=== PATIENT | male | born 1960 | race Caucasian/White ===

== ENCOUNTER 2022-10-02 12:29 | Inpatient (IN) | payer OTHER ==
[~2022-10-02] VITALS: Ht 172.7 cm; Wt 68.7 kg
[2022-10-02] MEDS ORDERED: SODIUM CHLORIDE 0.9% 1000ML 1,000 ML IV ONE ×2 (13:00→15:00)
[2022-10-02 13:09] LABS: BASOPHILS # (AUTO) 0.1 (0.0-0.1); BASOPHILS % 0.3 % (0.0-1.0); EOSINOPHILS % 0.1 % (0.0-6.0); HEMATOCRIT 39.2 % (38.2-49.6); HEMOGLOBIN 12.8 g/dL (14.0-18.0); LYMPHOCYTES # (AUTO) 0.5 (1.0-3.2); LYMPHOCYTES % 2.8 % (18.0-39.1); MEAN CORPUSCULAR HEMOGLOBIN 33.8 pg (28-32); MEAN CORPUSCULAR HGB CONC 32.7 g/dL (31-35); MEAN CORPUSCULAR VOLUME 103.4 fL (81-99); MONOCYTES # (AUTO) 0.4 (0.2-0.8); MONOCYTES % 1.9 % (4.4-11.3); NEUTROPHILS # (AUTO) 17.8 (2.1-6.9); NEUTROPHILS % 92.3 % (38.7-80.0); PLATELET COUNT 158 x10e3/uL (140-360); RED BLOOD COUNT 3.79 x10e6/uL (4.3-5.7); RED CELL DISTRIBUTION WIDTH 15.6 % (11.7-14.4)
[2022-10-02] MEDS: Vancomycin IV 1 GM in SODIUM CHLORIDE 0.9% 250ML 250 ML IV SCH (13:18)
[2022-10-02 13:21] LABS: INR 1.04; PROTHROMBIN TIME 14.1 seconds (11.9-14.5)
[2022-10-02 13:22] LABS: PARTIAL THROMBOPLASTIN TIME 34.8 seconds (23.8-35.5)
[2022-10-02 13:30] LABS: ALBUMIN 3.1 g/dL (3.5-5.0); ALBUMIN/GLOBULIN RATIO 0.9 (0.8-2.0); ANION GAP 15.8 mmol/L (8-16); CALCIUM 10.1 mg/dL (8.4-10.2); CREATININE, SERUM 1.24 mg/dL (0.72-1.25); POTASSIUM 3.8 mmol/L (3.5-5.1)
[2022-10-02 14:07] LABS: BAND NEUTROPHILS % (MANUAL) 11 %; EOSINOPHILS % (MANUAL) 1 % (0-7); LYMPHOCYTES % (MANUAL) 3 % (19-48); MONOCYTES % (MANUAL) 1 % (3.4-9.0); NEUTROPHILS % (MANUAL) 84 % (40-74); PLATELET ESTIMATE ADEQUATE; PLATELET MORPHOLOGY COMMENT NORMAL; RBC MORPHOLOGY COMMENT NORMAL
[2022-10-02] MEDS ORDERED: IOPAMIDOL 370 MG/ML 100 ML INFUS..BTL INJ ONE (14:15)
[2022-10-02] MEDS ORDERED: SODIUM CHLORIDE 0.9% 1000ML 1,000 ML IV SCH (15:00)
[2022-10-02] MEDS: SODIUM CHLORIDE 0.9% 1000ML 1,000 ML IV SCH (15:15)
[2022-10-02] MEDS ORDERED: ONDANSETRON HCL INJ 2MG/ML 2ML 2 MG/ML VIAL IV PRN (15:15)
[2022-10-02 15:47] LABS: CLARITY,URINE CLEAR (CLEAR); COLOR,URINE YELLOW (YELLOW)
[2022-10-02 15:48] LABS: KETONES,URINE NEGATIVE (NEGATIVE); LEUKOCYTE ESTERASE ,URINE NEGATIVE (NEGATIVE); NITRITE,URINE NEGATIVE (NEGATIVE); PROTEIN,URINE DIPSTICK NEGATIVE (NEGATIVE); URINE UROBILINOGEN 0.2 mg/dL (0.2 - 1)
[2022-10-02 15:55] LABS: BACTERIA,URINE RARE /HPF; EPITHELIAL CELLS,URINE RARE /LPF; WBC,URINE (MAN) 0-5 /HPF (0-5)
[2022-10-02 19:26] VITALS: BP 129/83; PULSE 100; RESP 18; TEMP 98.6; O2SAT 100
[2022-10-02 20:00] VITALS: BP 129/83; PULSE 100; RESP 18; TEMP 98.6; O2SAT 100
[2022-10-02] MEDS ORDERED: FLUOXETINE HCL10 MG PO (20:31)
[2022-10-02] MEDS ORDERED: LEVOCETIRIZINE D5 MG PO (20:31)
[2022-10-02] MEDS ORDERED: EZETIMIBE10 MG PO (20:31)
[2022-10-02] MEDS ORDERED: PANTOPRAZOLE SO40 MG PO (20:31)
[2022-10-02] MEDS ORDERED: LEFLUNOMIDE20 MG PO (20:31)
[2022-10-02] MEDS ORDERED: ROSUVASTATIN CA20 MG PO (20:31)
[2022-10-02] MEDS ORDERED: MONTELUKAST SOD10 MG PO (20:32)
[2022-10-02] MEDS ORDERED: BUPROPION HCL100 MG PO (20:32)
[2022-10-02 21:00] VITALS: BP 129/83; PULSE 100; RESP 18; TEMP 98.6; O2SAT 100
[2022-10-02] MEDS ORDERED: KETOCONAZOLE120 ML (21:17)
[2022-10-02] MEDS ORDERED: DOXAZOSIN MESYLA2 MG PO (21:17)
[2022-10-02] MEDS ORDERED: SILDENAFIL CITR20 MG PO (21:17)
[2022-10-02] MEDS ORDERED: ATROVENT HFA12.9 GM INH (21:17)
[2022-10-02] MEDS ORDERED: HYDROCODON-ACE1 EAC9 PO (21:17)
[2022-10-02] MEDS ORDERED: KETOCONAZOLE 2% SHAMPOO 4OZ BTL TOP PRN (21:45)
[2022-10-02] MEDS: IPRATROPIUM BROMIDE INHALER 12.9 GM INH INH SCH (21:53)
[2022-10-02] MEDS: DOXAZOSIN MESYLATE 2 MG TAB PO SCH (22:05)
[2022-10-02] MEDS: CRESTOR 10MG PO SCH (22:05)
[2022-10-02] MEDS: EZETIMIBE 10 MG TAB PO SCH (22:06)
[2022-10-02] MEDS: LORATADINE 10 MG TAB PO SCH (22:06)
[2022-10-02] MEDS: BUPROPION HCL 100 MG TAB PO SCH (22:06)
[2022-10-03] VITALS: BP 133/84; PULSE 111; RESP 17; TEMP 100.1; O2SAT 97
[2022-10-03] MEDS: Vancomycin IV 1 GM in SODIUM CHLORIDE 0.9% 250ML 250 ML IV SCH ×2 (01:12→13:01)
[2022-10-03] MEDS: SODIUM CHLORIDE 0.9% 1000ML 1,000 ML IV SCH ×4 (01:18→21:47)
[2022-10-03 04:00] VITALS: BP 137/95; PULSE 109; RESP 18; TEMP 100.9; O2SAT 98
[2022-10-03] MEDS: ACETAMINOPHEN 325 MG TAB PO PRN ×2 (05:57→23:48)
[2022-10-03 06:11] LABS: BASOPHILS % 0.3 % (0.0-1.0); EOSINOPHILS % 0.3 % (0.0-6.0); HEMATOCRIT 33.8 % (38.2-49.6); HEMOGLOBIN 10.7 g/dL (14.0-18.0); LYMPHOCYTES # (AUTO) 0.8 (1.0-3.2); LYMPHOCYTES % 7.3 % (18.0-39.1); MEAN CORPUSCULAR HEMOGLOBIN 34.2 pg (28-32); MEAN CORPUSCULAR HGB CONC 31.7 g/dL (31-35); MONOCYTES # (AUTO) 0.3 (0.2-0.8); MONOCYTES % 2.5 % (4.4-11.3); NEUTROPHILS # (AUTO) 10.1 (2.1-6.9); NEUTROPHILS % 88.2 % (38.7-80.0); PLATELET COUNT 149 x10e3/uL (140-360); RED BLOOD COUNT 3.13 x10e6/uL (4.3-5.7); RED CELL DISTRIBUTION WIDTH 15.3 % (11.7-14.4)
[2022-10-03 06:47] LABS: ANION GAP 11.8 mmol/L (8-16); CALCIUM 8.6 mg/dL (8.4-10.2); CREATININE, SERUM 0.96 mg/dL (0.72-1.25); POTASSIUM 3.8 mmol/L (3.5-5.1)
[2022-10-03 07:26] LABS: ALBUMIN 2.5 g/dL (3.5-5.0)
[2022-10-03 07:29] LABS: ALBUMIN/GLOBULIN RATIO 0.7 (0.8-2.0)
[2022-10-03] MEDS ORDERED: KETOROLAC TROMETHAMINE 30 MG/ML VIAL IV ONE (07:30)
[2022-10-03] MEDS: IPRATROPIUM BROMIDE INHALER 12.9 GM INH INH SCH ×4 (09:00→21:00)
[2022-10-03 09:05] VITALS: BP 111/83; PULSE 108; RESP 20; TEMP 98.5; O2SAT 95
[2022-10-03] MEDS: FLUOXETINE HCL 10 MG CAP PO SCH (11:07)
[2022-10-03] MEDS: MONTELUKAST SODIUM 10 MG TAB PO SCH (11:07)
[2022-10-03] MEDS: PANTOPRAZOLE SOD 40 MG TABEC PO SCH (11:07)
[2022-10-03] MEDS: BUPROPION HCL 100 MG TAB PO SCH ×2 (11:07→17:28)
[2022-10-03] MEDS: HYDROCODONE/APAP 10MG-325MG TAB PO SCH (11:08)
[2022-10-03 13:07] VITALS: BP 132/94; PULSE 96; RESP 16; TEMP 98.3; O2SAT 97
[2022-10-03 17:05] VITALS: BP 126/91; PULSE 100; RESP 18; TEMP 98.4; O2SAT 97
[2022-10-03] MEDS: ENOXAPARIN 30 MG/0.3 ML SYR SC SCH (17:29)
[2022-10-03 19:50] LABS: HIV 1&2 AB SCREEN NON-REACTIVE (NONREACTIVE)
[2022-10-03 20:00] VITALS: BP 145/94; PULSE 112; RESP 20; TEMP 100.8; O2SAT 95
[2022-10-03] MEDS: METOCLOPRAMIDE HCL 10 MG TAB PO SCH (21:48)
[2022-10-03] MEDS: DOXAZOSIN MESYLATE 2 MG TAB PO SCH (21:49)
[2022-10-03] MEDS: EZETIMIBE 10 MG TAB PO SCH (21:50)
[2022-10-03] MEDS: LORATADINE 10 MG TAB PO SCH (21:50)
[2022-10-03] MEDS: CRESTOR 10MG PO SCH (21:53)
[2022-10-03] MEDS ORDERED: PIPERACILLIN/TAZOBACTAM 3.375 GM VIAL ONE (22:58)
[2022-10-04] VITALS (9 sets, daily range): BP systolic 117–149; BP diastolic 81–97; PULSE 83–116; RESP 17–20; TEMP 98.3–103.1; O2SAT 94–96
[2022-10-04] MEDS ORDERED: KETOROLAC TROMETHAMINE 30 MG/ML VIAL IV ONE
[2022-10-04] MEDS: Vancomycin IV 1 GM in SODIUM CHLORIDE 0.9% 250ML 250 ML IV SCH ×2 (01:49→16:40)
[2022-10-04] MEDS: SODIUM CHLORIDE 0.9% 1000ML 1,000 ML IV SCH ×2 (05:39→09:07)
[2022-10-04 06:00] LABS: BASOPHILS % 0.5 % (0.0-1.0); EOSINOPHILS # (AUTO) 0.1 (0.0-0.4); EOSINOPHILS % 1.1 % (0.0-6.0); HEMATOCRIT 34.8 % (38.2-49.6); HEMOGLOBIN 10.9 g/dL (14.0-18.0); LYMPHOCYTES # (AUTO) 0.7 (1.0-3.2); LYMPHOCYTES % 11.6 % (18.0-39.1); MEAN CORPUSCULAR HEMOGLOBIN 33.9 pg (28-32); MEAN CORPUSCULAR HGB CONC 31.3 g/dL (31-35); MEAN CORPUSCULAR VOLUME 108.1 fL (81-99); MONOCYTES # (AUTO) 0.2 (0.2-0.8); MONOCYTES % 2.6 % (4.4-11.3); NEUTROPHILS # (AUTO) 5.1 (2.1-6.9); NEUTROPHILS % 83.2 % (38.7-80.0); PLATELET COUNT 133 x10e3/uL (140-360); RED BLOOD COUNT 3.22 x10e6/uL (4.3-5.7)
[2022-10-04 06:17] LABS: ANION GAP 14.7 mmol/L (8-16); CALCIUM 8.4 mg/dL (8.4-10.2); CREATININE, SERUM 0.97 mg/dL (0.72-1.25); POTASSIUM 3.7 mmol/L (3.5-5.1)
[2022-10-04] MEDS: PANTOPRAZOLE SOD 40 MG TABEC PO SCH (08:45)
[2022-10-04] MEDS: MONTELUKAST SODIUM 10 MG TAB PO SCH (08:45)
[2022-10-04] MEDS: FLUOXETINE HCL 10 MG CAP PO SCH (08:45)
[2022-10-04] MEDS: BUPROPION HCL 100 MG TAB PO SCH ×2 (08:45→16:43)
[2022-10-04] MEDS: HYDROCODONE/APAP 10MG-325MG TAB PO SCH (08:46)
[2022-10-04] MEDS: IPRATROPIUM BROMIDE INHALER 12.9 GM INH INH SCH ×4 (09:00→21:00)
[2022-10-04] MEDS: ACETAMINOPHEN 325 MG TAB PO PRN ×2 (12:42→18:41)
[2022-10-04] MEDS: LORATADINE 10 MG TAB PO SCH (20:48)
[2022-10-04] MEDS: CRESTOR 10MG PO SCH (20:48)
[2022-10-04] MEDS: METOCLOPRAMIDE HCL 10 MG TAB PO SCH (20:48)
[2022-10-04] MEDS: EZETIMIBE 10 MG TAB PO SCH (20:48)
[2022-10-04] MEDS: DOXAZOSIN MESYLATE 2 MG TAB PO SCH (20:49)
[2022-10-05] VITALS (8 sets, daily range): BP systolic 138–152; BP diastolic 79–93; PULSE 79–103; RESP 18–19; TEMP 97.5–101.5; O2SAT 94–100
[2022-10-05] MEDS: ACETAMINOPHEN 325 MG TAB PO PRN (00:41)
[2022-10-05] MEDS: SODIUM CHLORIDE 0.9% 1000ML 1,000 ML IV SCH ×3 (03:39→23:55)
[2022-10-05] MEDS: Vancomycin IV 1 GM in SODIUM CHLORIDE 0.9% 250ML 250 ML IV SCH ×2 (04:02→16:17)
[2022-10-05 06:09] LABS: BASOPHILS % 0.6 % (0.0-1.0); EOSINOPHILS # (AUTO) 0.1 (0.0-0.4); EOSINOPHILS % 1.7 % (0.0-6.0); HEMATOCRIT 33.8 % (38.2-49.6); HEMOGLOBIN 10.9 g/dL (14.0-18.0); LYMPHOCYTES # (AUTO) 0.8 (1.0-3.2); LYMPHOCYTES % 14.7 % (18.0-39.1); MEAN CORPUSCULAR HEMOGLOBIN 33.9 pg (28-32); MEAN CORPUSCULAR HGB CONC 32.2 g/dL (31-35); MONOCYTES # (AUTO) 0.2 (0.2-0.8); MONOCYTES % 4.1 % (4.4-11.3); NEUTROPHILS # (AUTO) 4.2 (2.1-6.9); NEUTROPHILS % 77.6 % (38.7-80.0); PLATELET COUNT 120 x10e3/uL (140-360); RED BLOOD COUNT 3.22 x10e6/uL (4.3-5.7); RED CELL DISTRIBUTION WIDTH 14.8 % (11.7-14.4)
[2022-10-05 06:37] LABS: ANION GAP 14.6 mmol/L (8-16); CALCIUM 8.5 mg/dL (8.4-10.2); CREATININE, SERUM 0.94 mg/dL (0.72-1.25); POTASSIUM 3.6 mmol/L (3.5-5.1)
[2022-10-05] MEDS: IPRATROPIUM BROMIDE INHALER 12.9 GM INH INH SCH ×4 (09:00→21:00)
[2022-10-05] MEDS ORDERED: ACETAMINOPHEN 1000 MG/100 ML IV ONE (10:45)
[2022-10-05] MEDS ORDERED: ONDANSETRON HCL INJ 2MG/ML 2ML 2 MG/ML VIAL ONE (11:17)
[2022-10-05] MEDS ORDERED: POVIDONE IODINE 0.05% 0.05 % ML PO ONE (11:17)
[2022-10-05] MEDS ORDERED: EPINEPHRINE HCL 1:1000 1ML 1 MG/ML AMP ONE (11:17)
[2022-10-05] MEDS ORDERED: LIDOCAINE JELLY 2% 10ML URO-JET ONE (11:17)
[2022-10-05] MEDS ORDERED: PROPOFOL IV EMULSION 10 MG/ML 20 ML VIAL ONE (11:17)
[2022-10-05] MEDS ORDERED: SEVOFLURANE INHAL SOLN 250 ML PEN BTL ONE (11:17)
[2022-10-05] MEDS ORDERED: LIDOCAINE HCL 4% 50 ML BTL ONE (11:17)
[2022-10-05] MEDS ORDERED: SUCCINYLCHOLINE CHLORIDE 20 MG/ML 10ML VIAL ONE (11:17)
[2022-10-05] MEDS ORDERED: LIDOCAINE HCL 2% LOCAL INJ 5 ML SDV VIAL INJ ONE (11:17)
[2022-10-05] MEDS ORDERED: ESMOLOL HCL 100MG/10ML 10 MG/ML VIAL ONE (11:17)
[2022-10-05] MEDS ORDERED: DEXAMETHASONE SOD PHOS INJ 4 MG/ML SDV ONE (11:17)
[2022-10-05] MEDS ORDERED: MIDAZOLAM HCL 2 MG/2 ML VIAL ONE (12:33)
[2022-10-05] MEDS ORDERED: FENTANYL CITRATE/PF 100MCG/2 ML INJ ONE (12:33)
[2022-10-05 14:37] LABS: BODY FLUID APPEARANCE CLOUDY; BODY FLUID COLOR COLORLESS; BODY FLUID TYPE BRONCH LAVAGE
[2022-10-05 14:47] LABS: RBC,BODY FLUID 26 cells/uL; WBC,BODY FLUID 176 cells/uL
[2022-10-05] MEDS: PANTOPRAZOLE SOD 40 MG TABEC PO SCH (16:15)
[2022-10-05] MEDS: BUPROPION HCL 100 MG TAB PO SCH ×2 (16:15→16:56)
[2022-10-05] MEDS: MONTELUKAST SODIUM 10 MG TAB PO SCH (16:16)
[2022-10-05] MEDS: HYDROCODONE/APAP 10MG-325MG TAB PO SCH (16:16)
[2022-10-05] MEDS: FLUOXETINE HCL 10 MG CAP PO SCH (16:40)
[2022-10-05 17:09] LABS: LYMPHOCYTES,BODY FLUID 39 %; MONO/MACROPHG,BODY FLUID 8 %; NEUTROPHILS,BODY FLUID 53 %
[2022-10-05] MEDS: ALBUTEROL/IPRATROPIUM 3 ML NEB NEB SCH (20:15)
[2022-10-05] MEDS: DOXAZOSIN MESYLATE 2 MG TAB PO SCH (21:06)
[2022-10-05] MEDS: CRESTOR 10MG PO SCH (21:06)
[2022-10-05] MEDS: EZETIMIBE 10 MG TAB PO SCH (21:07)
[2022-10-05] MEDS: METOCLOPRAMIDE HCL 10 MG TAB PO SCH (21:07)
[2022-10-05] MEDS: LORATADINE 10 MG TAB PO SCH (21:07)
[2022-10-06] VITALS (12 sets, daily range): BP systolic 135–159; BP diastolic 86–95; PULSE 76–105; RESP 18–22; TEMP 97.6–98.2; O2SAT 95–100
[2022-10-06] MEDS: ALBUTEROL/IPRATROPIUM 3 ML NEB NEB SCH ×4 (01:40→19:10)
[2022-10-06] MEDS: Vancomycin IV 1 GM in SODIUM CHLORIDE 0.9% 250ML 250 ML IV SCH ×2 (05:11→16:53)
[2022-10-06] MEDS: IPRATROPIUM BROMIDE INHALER 12.9 GM INH INH SCH ×4 (06:26→21:00)
[2022-10-06] MEDS: MONTELUKAST SODIUM 10 MG TAB PO SCH (09:17)
[2022-10-06] MEDS: BUPROPION HCL 100 MG TAB PO SCH ×2 (09:17→16:53)
[2022-10-06] MEDS: FLUOXETINE HCL 10 MG CAP PO SCH (09:17)
[2022-10-06] MEDS: PANTOPRAZOLE SOD 40 MG TABEC PO SCH (09:17)
[2022-10-06] MEDS: HYDROCODONE/APAP 10MG-325MG TAB PO SCH ×2 (09:18→21:18)
[2022-10-06] MEDS ORDERED: ONDANSETRON HCL 4 MG ORAL DISINTEGRATING TAB PO PRN (11:45)
[2022-10-06] MEDS: ENOXAPARIN 30 MG/0.3 ML SYR SC SCH (16:53)
[2022-10-06] MEDS: SODIUM CHLORIDE 0.9% 1000ML 1,000 ML IV SCH (18:01)
[2022-10-06] MEDS: CRESTOR 10MG PO SCH (21:18)
[2022-10-06] MEDS: DOXAZOSIN MESYLATE 2 MG TAB PO SCH (21:19)
[2022-10-06] MEDS: EZETIMIBE 10 MG TAB PO SCH (21:20)
[2022-10-06] MEDS: LORATADINE 10 MG TAB PO SCH (21:20)
[2022-10-06] MEDS: METOCLOPRAMIDE HCL 10 MG TAB PO SCH (23:59)
[2022-10-07] VITALS (13 sets, daily range): BP systolic 113–132; BP diastolic 67–90; PULSE 79–117; RESP 16–22; TEMP 97.4–102.2; O2SAT 96–100
[2022-10-07] MEDS: ALBUTEROL/IPRATROPIUM 3 ML NEB NEB SCH ×4 (00:25→19:00)
[2022-10-07] MEDS: ACETAMINOPHEN 325 MG TAB PO PRN ×2 (05:45→12:36)
[2022-10-07 05:59] LABS: BASOPHILS % 0.2 % (0.0-1.0); EOSINOPHILS % 0.2 % (0.0-6.0); HEMATOCRIT 33.7 % (38.2-49.6); HEMOGLOBIN 11.1 g/dL (14.0-18.0); LYMPHOCYTES # (AUTO) 0.5 (1.0-3.2); LYMPHOCYTES % 11.9 % (18.0-39.1); MEAN CORPUSCULAR HEMOGLOBIN 33.6 pg (28-32); MEAN CORPUSCULAR HGB CONC 32.9 g/dL (31-35); MEAN CORPUSCULAR VOLUME 102.1 fL (81-99); MONOCYTES # (AUTO) 0.3 (0.2-0.8); MONOCYTES % 5.6 % (4.4-11.3); NEUTROPHILS # (AUTO) 3.6 (2.1-6.9); PLATELET COUNT 146 x10e3/uL (140-360); RED CELL DISTRIBUTION WIDTH 14.5 % (11.7-14.4)
[2022-10-07 06:24] LABS: ALBUMIN 2.5 g/dL (3.5-5.0); ALBUMIN/GLOBULIN RATIO 0.7 (0.8-2.0); ANION GAP 14.5 mmol/L (8-16); CALCIUM 8.5 mg/dL (8.4-10.2); CREATININE, SERUM 0.89 mg/dL (0.72-1.25); MAGNESIUM 1.7 MG/DL (1.3-2.1); POTASSIUM 3.5 mmol/L (3.5-5.1)
[2022-10-07] MEDS: IPRATROPIUM BROMIDE INHALER 12.9 GM INH INH SCH ×4 (06:26→21:00)
[2022-10-07] MEDS: Vancomycin IV 1 GM in SODIUM CHLORIDE 0.9% 250ML 250 ML IV SCH ×2 (06:29→16:40)
[2022-10-07] MEDS ORDERED: KETOROLAC TROMETHAMINE 30 MG/ML VIAL IV STA (08:01)
[2022-10-07] MEDS: FLUOXETINE HCL 10 MG CAP PO SCH (08:13)
[2022-10-07] MEDS: BUPROPION HCL 100 MG TAB PO SCH ×2 (08:13→16:40)
[2022-10-07] MEDS: PANTOPRAZOLE SOD 40 MG TABEC PO SCH (08:13)
[2022-10-07] MEDS: MONTELUKAST SODIUM 10 MG TAB PO SCH (08:13)
[2022-10-07] MEDS: SODIUM CHLORIDE 0.9% 1000ML 1,000 ML IV SCH ×2 (12:36→20:52)
[2022-10-07] MEDS: ENOXAPARIN 30 MG/0.3 ML SYR SC SCH (16:41)
[2022-10-07] MEDS: EZETIMIBE 10 MG TAB PO SCH (20:48)
[2022-10-07] MEDS: METOCLOPRAMIDE HCL 10 MG TAB PO SCH (20:48)
[2022-10-07] MEDS: LORATADINE 10 MG TAB PO SCH (20:48)
[2022-10-07] MEDS: CRESTOR 10MG PO SCH (20:48)
[2022-10-07] MEDS: METHYLPREDNISOLONE SOD SUCC 40 MG/ML VIAL 1ML IV SCH (20:48)
[2022-10-07] MEDS: DOXAZOSIN MESYLATE 2 MG TAB PO SCH (20:49)
[2022-10-08] VITALS (12 sets, daily range): BP systolic 133–167; BP diastolic 83–95; PULSE 85–101; RESP 16–20; TEMP 98–98.6; O2SAT 96–99
[2022-10-08] MEDS: ALBUTEROL/IPRATROPIUM 3 ML NEB NEB SCH ×4 (00:25→19:05)
[2022-10-08] MEDS: Vancomycin IV 1 GM in SODIUM CHLORIDE 0.9% 250ML 250 ML IV SCH (03:26)
[2022-10-08] MEDS: IPRATROPIUM BROMIDE INHALER 12.9 GM INH INH SCH ×5 (08:06→20:39)
[2022-10-08] MEDS: METHYLPREDNISOLONE SOD SUCC 40 MG/ML VIAL 1ML IV SCH ×2 (09:19→21:55)
[2022-10-08] MEDS: BUPROPION HCL 100 MG TAB PO SCH ×2 (09:19→16:50)
[2022-10-08] MEDS: FLUOXETINE HCL 10 MG CAP PO SCH (09:19)
[2022-10-08] MEDS: MONTELUKAST SODIUM 10 MG TAB PO SCH (09:19)
[2022-10-08] MEDS: PANTOPRAZOLE SOD 40 MG TABEC PO SCH (09:19)
[2022-10-08] MEDS: SODIUM CHLORIDE 0.9% 1000ML 1,000 ML IV SCH (10:36)
[2022-10-08] MEDS: ENOXAPARIN 30 MG/0.3 ML SYR SC SCH (16:50)
[2022-10-08] MEDS ORDERED: HYDROCODONE/APAP 10MG-325MG TAB PO SCH (21:00)
[2022-10-08] MEDS: EZETIMIBE 10 MG TAB PO SCH (21:57)
[2022-10-08] MEDS: METOCLOPRAMIDE HCL 10 MG TAB PO SCH (21:57)
[2022-10-08] MEDS: LORATADINE 10 MG TAB PO SCH (21:58)
[2022-10-08] MEDS: CRESTOR 10MG PO SCH (21:58)
[2022-10-08] MEDS: DOXAZOSIN MESYLATE 2 MG TAB PO SCH (21:59)
[2022-10-09] VITALS (12 sets, daily range): BP systolic 133–158; BP diastolic 84–94; PULSE 80–93; RESP 18–20; TEMP 97.5–98.1; O2SAT 95–100
[2022-10-09] MEDS: SODIUM CHLORIDE 0.9% 1000ML 1,000 ML IV SCH ×2 (00:18→16:31)
[2022-10-09] MEDS: ALBUTEROL/IPRATROPIUM 3 ML NEB NEB SCH ×4 (00:30→19:20)
[2022-10-09] MEDS: METHYLPREDNISOLONE SOD SUCC 40 MG/ML VIAL 1ML IV SCH (08:48)
[2022-10-09] MEDS: FLUOXETINE HCL 10 MG CAP PO SCH (08:48)
[2022-10-09] MEDS: MONTELUKAST SODIUM 10 MG TAB PO SCH (08:48)
[2022-10-09] MEDS: PANTOPRAZOLE SOD 40 MG TABEC PO SCH (08:48)
[2022-10-09] MEDS: BUPROPION HCL 100 MG TAB PO SCH ×2 (08:48→17:16)
[2022-10-09] MEDS: IPRATROPIUM BROMIDE INHALER 12.9 GM INH INH SCH (13:00)
[2022-10-09] MEDS: ENOXAPARIN 30 MG/0.3 ML SYR SC SCH (17:16)
== END 2022-10-09 20:20 | disposition home or self-care (01) | DRG 194 ==
LOC: ER 12:37 → ERHOLD 15:13 → MED/SURG3 18:45
PROVIDERS: ADMIT Family Medicine; ATTEND Family Medicine
PROC: 0BC48ZZ Extirpation of Matter from Right Upper Lobe Bronchus, Via Natural or Artificial Opening Endoscopic (ICD-10-PCS; 2022-10-05)
PROC: 0B9F8ZX Drainage of Right Lower Lung Lobe, Via Natural or Artificial Opening Endoscopic, Diagnostic (ICD-10-PCS; principal; 2022-10-05 11:30)
PROC: 8E0ZXY6 Isolation (ICD-10-PCS; 2022-10-06)
DX: J15.9 Unspecified bacterial pneumonia (principal); D84.9 Immunodeficiency, unspecified; K21.9 Gastro-esophageal reflux disease without esophagitis; M06.9 Rheumatoid arthritis, unspecified; I10 Essential (primary) hypertension; E78.5 Hyperlipidemia, unspecified; J40 Bronchitis, not specified as acute or chronic; F32.A Depression, unspecified; R09.02 Hypoxemia; Z20.822 Contact with and (suspected) exposure to COVID-19; Z96.642 Presence of left artificial hip joint; F10.10 Alcohol abuse, uncomplicated; D64.9 Anemia, unspecified; D75.89 Other specified diseases of blood and blood-forming organs; M35.9 Systemic involvement of connective tissue, unspecified
CPT/HCPCS: 0223U; 31622; 36415; 71045; 71260; 80048; 80053; 80202; 81001; 82607; 82747; 83605; 83735; 83921; 84443; 85025; 85610; 85730; 86631; 86738; 87040; 87070; 87086; 87102; 87116; 87205; 87206; 87278; 87335; 87385; 87390; 87449; 88112; 88300; 88305; 88312; 89051; 93005; 94799; 96361; 99284; G0433; G0435; J0171; J0330; J1100; J1650; J1885; J2001; J2250; J2405; J2543; J2920; J7030; J7050; Q9967

== ENCOUNTER 2024-10-21 10:00 | Outpatient (RCR) | payer OTHER ==
[~2024-10-21 10:00] MED LIST: ATROVENT HFA12.9 GM INH; BUPROPION HCL100 MG PO; DOXAZOSIN MESYLA2 MG PO; EZETIMIBE10 MG PO; FLUOXETINE HCL10 MG PO; HYDROCODON-ACE1 EAC9 PO; KETOCONAZOLE120 ML; LEFLUNOMIDE20 MG PO; LEVOCETIRIZINE D5 MG PO; MONTELUKAST SOD10 MG PO; PANTOPRAZOLE SO40 MG PO; ROSUVASTATIN CA20 MG PO; SILDENAFIL CITR20 MG PO
== END 2024-10-22 ==
LOC: PT 10:00
PROVIDERS: ATTEND Neurological Surgery
DX: M50.11 Cervical disc disorder with radiculopathy, high cervical region (principal)